=== PATIENT | female | born 1985 | race Caucasian/White ===

== ENCOUNTER 2018-06-11 08:31 | Day surgery (SDC) | payer BC ==
[2018-06-11] MEDS ORDERED: Lactated Ringer's 500 ML IV ONE (09:06)
[2018-06-11] MEDS ORDERED: Propofol 10 mg/ml Inj (20 ML) ONE (11:21)
[2018-06-11 11:55] VITALS: TEMP 97; O2SAT 97
[2018-06-11 11:56] VITALS: BP 114/67; PULSE 81; RESP 18
== END 2018-06-11 12:20 | disposition home or self-care (01) ==
LOC: H.ENDO 08:31
PROVIDERS: ATTEND Internal Medicine Gastroenterology
DX: K29.70 Gastritis, unspecified, without bleeding (principal); E66.01 Morbid (severe) obesity due to excess calories
CPT/HCPCS: 43239; 88305; J2001; J2704; J7120